=== PATIENT | female | born 1965 | race Caucasian/White ===

== ENCOUNTER → 2017-07-08 | Outpatient (CLI) | payer OTHER ==
--- NOTE | 2017-07-08 22:59 | XR ---
EXAMINATION TYPE: XR elbow complete 3 views LT, XR hand complete 3 views LT DATE OF EXAM: 07/08/2017 COMPARISON: NONE HISTORY: 51-year-old female left hand and elbow pain after fall FINDINGS: Left elbow: No acute fracture, subluxation, or dislocation. No significant elbow joint effusion. Left hand: Minimal osteoarthritic spurring at the first IP joint and fifth DIP joint. No acute fracture, subluxa tion, or dislocation seen. IMPRESSION: 1. Elbow: No acute osseous abnormality seen. 2. Pain: No acute osseous abnormality seen.
== END | disposition home or self-care (01) ==
LOC: RADXRYALE 16:01
PROVIDERS: ATTEND Physician Assistant Medical
DX: M25.522 Pain in left elbow (principal); M79.642 Pain in left hand

== ENCOUNTER → 2020-06-27 | Outpatient (CLI) | payer OTHER ==
--- NOTE | 2020-06-27 11:28 | XR ---
EXAMINATION TYPE: XR lumbosacral spine min 4V DATE OF EXAM: 06/27/2020 Comparison: None Clinical History: 54-year-old female [id number] LUMBAGO Findings: Mild endplate spondylosis throughout. Facet arthropathy mid to lower lumbar spine. Vertebral body hei ghts are preserved and alignment is maintained. No pars interarticularis defect. 5 lumbar type verteb ral bodies. Impression: Facet arthropathy mid to lower lumbar spine. Mild endplate spondylosis throughout. No vertebral compr ession collapse or malalignment.
== END | disposition home or self-care (01) ==
LOC: RADXRYALE 09:26
PROVIDERS: ATTEND Physician Assistant Medical
DX: M47.816 Spondylosis without myelopathy or radiculopathy, lumbar region (principal)
CPT/HCPCS: 72110

== ENCOUNTER → 2023-05-06 | Outpatient (CLI) | payer OTHER ==
--- NOTE | 2023-05-06 12:03 | XR ---
EXAMINATION TYPE: XR foot complete RT DATE OF EXAM: 05/06/2023 COMPARISON: None HISTORY: Plantar fasciitis TECHNIQUE: 3 view right foot FINDINGS: No acute fractures or dislocations are evident. Joint spaces are preserved. Very minimal pl carlos calcaneal heel spur is present. Plantar arch appears preserved Follow up exams can be performed 7-10 days from acute trauma for continued pain. IMPRESSION: 1. No acute osseous abnormality right foot
== END | disposition home or self-care (01) ==
LOC: RADXRYALE 08:54
PROVIDERS: ATTEND Physician Assistant Medical
DX: M72.2 Plantar fascial fibromatosis (principal)

== ENCOUNTER → 2024-07-22 | Day surgery (SDC) | payer OTHER ==
[~2024-07-22] MED LIST: LIDOCAINE 1% (10MG/ML) FOR IV START INTRADERMA PRN; PROPOFOL 10 MG/ML 20 ML VIAL IV ONE
[2024-07-22] MEDS: IV FLUID CONTINUATION 1,000 ML IV ONE (10:38)
[2024-07-22 10:41] VITALS: TEMP 98.6
[2024-07-22] MEDS: LACTATED RINGERS 1,000 ML IV SCH (10:47)
--- NOTE | 2024-07-22 12:18 | P.PCN ---
Date of Procedure: 07/22/24 Procedure(s) Performed: BRIEF HISTORY: Patient is a 58-year-old pleasant white female scheduled for an elective colonoscopy as a part of screening for colon cancer. PROCEDURE PERFORMED: Colonoscopy. PREOPERATIVE DIAGNOSIS: Screening for colon cancer. IV sedation per Anesthesia. PROCEDURE: After informed consent was obtained, the patient, was brought into the endoscopy unit. IV sedation was administered by Anesthesia under continuous monitoring. Digital rectal examination was normal. Initially the Olympus CF-160 flexible video colonoscope was then inserted in the rectum, gradually advanced into the cecum without any difficulty. Careful examination was performed as the scope was gradually being withdrawn. Ileocecal valve and the appendiceal orifice were visualized and appeared normal. Prep was excellent. Mucosa of the cecum, ascending colon, transverse colon, descending colon, sigmoid colon, and rectum appeared normal. Scattered diffuse diverticulosis retroflexion was performed in the rectum and no lesions were seen. The patient tolerated the procedure well. IMPRESSION: Normal-appearing colon from rectum to cecum with no evidence of colorectal neoplasia. Scattered diffuse diverticulosis. RECOMMENDATIONS: Findings of this examination were discussed with the patient as well as her family. She was advised to have repeat screening colonoscopy in 10 years..
[2024-07-22 12:38] VITALS: BP 122/80; PULSE 65; RESP 16
== END ==
LOC: ORWHC2ENDO 10:05
PROVIDERS: ATTEND Internal Medicine Gastroenterology
DX: Z12.11 Encounter for screening for malignant neoplasm of colon (principal); K57.30 Diverticulosis of large intestine without perforation or abscess without bleeding; E78.5 Hyperlipidemia, unspecified; Z79.899 Other long term (current) drug therapy
CPT/HCPCS: 45378; J2704